=== PATIENT | male | born 1985 | race African-American/Black ===

== ENCOUNTER 2019-04-28 15:39 | Emergency (ER) | payer SELFPAY ==
[~2019-04-28] VITALS: Ht 170.2 cm; Wt 73.0 kg
[2019-04-28] MEDS ORDERED: HYDR12.529 PO (15:54)
[2019-04-28] MEDS ORDERED: IBUPROFEN 600MG TABLET PO ONE (16:30)
[2019-04-28 17:41] VITALS: BP 135/67
== END 2019-04-28 17:54 | disposition home or self-care (01) ==
LOC: ER 15:39
DX: S62.304A Unspecified fracture of fourth metacarpal bone, right hand, initial encounter for closed fracture (principal); S62.306A Unspecified fracture of fifth metacarpal bone, right hand, initial encounter for closed fracture; J45.909 Unspecified asthma, uncomplicated; I10 Essential (primary) hypertension; Z88.0 Allergy status to penicillin; Z79.899 Other long term (current) drug therapy; Y04.0XXA Assault by unarmed brawl or fight, initial encounter; Y93.89 Activity, other specified; Y92.89 Other specified places as the place of occurrence of the external cause; Y99.8 Other external cause status
CPT/HCPCS: 29125; 73130; 99283